=== PATIENT | female | born 1990 | race Caucasian/White ===

== ENCOUNTER 2017-10-26 05:03 | Inpatient (IN) | payer BC, MEDICAID ==
[2017-10-26] MEDS ORDERED: RINGER'S SOLUTION,LACTATED 1,000 ML IV PRN ×2 (05:53)
[2017-10-26] MEDS ORDERED: ceFAZolin SODIUM/DEXTROSE,ISO 2 GM/50 ML BAG IV ONE (07:00)
[2017-10-26] MEDS ORDERED: OXYTOCIN 20 UNITS in RINGER'S SOLUTION,LACTATED 1,000 ML IV ONE (07:00)
[2017-10-26] MEDS ORDERED: RINGER'S SOLUTION,LACTATED 1,000 ML IV ONE (07:45)
[2017-10-26] MEDS ORDERED: oxyCODONE HCL/ACETAMINOPHEN 1 TAB TABLET PO PRN (09:00)
[2017-10-26] MEDS ORDERED: SENNOSIDES 8.6 MG TABLET PO PRN (09:00)
[2017-10-26] MEDS ORDERED: ONDANSETRON HCL/PF 2 MG/ML VIAL IV PRN (09:00)
[2017-10-26] MEDS ORDERED: BISACODYL 10 MG SUPP.RECT RC PRN (09:00)
[2017-10-26] MEDS ORDERED: SIMETHICONE 80 MG TAB.CHEW PO PRN (09:00)
--- NOTE | 2017-10-26 09:04 | OR ---
Operative Report - Dictated Report Narrative: Indication: 26-year-old 2 para 0101 at 39 weeks with prior section presents for repeat low transverse section. status: Planned Pre Operative Diagnosis: 39 week intrauterine . Prior section. Morbid obesity. Post Operative Diagnosis: Same. Procedure: Repeat low transverse section. Surgeon: Norman Mcadams DO Student Services Rep: OR Staff Anesthesia: Spinal, TAP block Estimated Blood Loss: 250 mL Urine Output: 50 mL concentrated urine Fluids Replacement: 1100 mL Drains: Seymour to gravity Surgical Complications: None Specimens: Placenta to freezer Findings: Male born at 0811 on 10/26/2017 with Apgars 9 and 10, weighing 3635 g in cephalic presentation. Normal uterus, tubes, ovaries Technique: The patient was taken to the operating room and placed in dorsal supine position with a left lateral tilt. After adequate spinal anesthesia, seymour catheter inserted, SCDs placed, and 2 g of Ancef given preoperatively, the abdominal cavity was entered using sharp and blunt dissection. Two rolled laps were placed in the pericolic gutters on either side of the uterus. A transverse incision was made in the lower uterine segment and extended laterally and upwardly with digital traction. Clear fluid was noted upon amniotomy. The was delivered easily. was warmed and dried and cord clamping was delayed approximately 60 seconds. The cord was clamped and cut and was handed off to awaiting exterminator termite. The placenta was allowed to deliver spontaneously. The uterus was cleared of clot and debris. Uterine incision was closed with 0 Vicryl using a running stitch. A second imbricating layer was placed. Excellent hemostasis was noted. The rolled laps were removed from the abdominal cavitiy. The peritoneum was closed with a running 3-0 Monocryl. The same suture was used to approximate the rectus and pyramidalis muscles. The fascia was closed with a running 0 Vicryl. The subcutaneous layer was closed with a running 3-0 Monocryl. The same suture was used to approximate the subdermal layer. The skin was closed with a running 4- 0 Monocryl and Dermabond. Sponge, lap, needle, and instrument count were correct x 2. Disposition: To post anesthesia care unit in good condition
--- NOTE | 2017-10-26 09:13 | OR ---
Anesthesia Procedure Note - Anesthesia Procedure Note Date of Service: 10/26/17 Narrative: Vital Signs - Last Taken Temp 36.5 C 10/26/17 08:55 Pulse 107 H 10/26/17 09:10 Resp 18 10/26/17 09:10 BP 128/65 10/26/17 09:10 Pulse Ox 98 10/26/17 09:10 O2 Oxygen Delivery Method Room Air 10/26/17 09:11 ANESTHESIA PROCEDURE NOTE Date of Procedure: 10/25/2017. Time of procedure: 0900. Performed by: Herbie Honeycutt CRNA Chemical Equipment Controller: None. Preprocedure diagnosis: Repeat . Post procedure diagnosis: Same. Procedure: Bilateral ultrasound-guided transversus abdominis plane block for postop analgesia. Indications: The patient is a 26 -year-old female, requesting a bilateral ultrasound-guided tap block for postoperative analgesia related to repeat section. Findings: See below. Details of the procedure: ChloraPrep was used on the patient's abdomen and the procedure was performed under sterile technique. The right abdominal fascial layer between the internal oblique muscle and the transversus abdominis muscle was identified under ultrasound guidance. A 21-gauge 4 inch block needle was inserted under ultrasound guidance to the target fascial plane. 15 mL's of 0.5 % bupivacaine plus epinephrine 1:200,000 was injected after negative aspiration for blood. The needle was removed intact and the procedure was then repeated at the left side. No complications were noted. The images were retained in the hospital medical database . EBL: Minimal. Fluids: N/A. Specimen: N/A. Post procedure condition: The patient tolerated the procedure well. No complications were noted. Thank you for this consultation. Herbie Honeycutt CRNA
[2017-10-26] MEDS: oxyCODONE HCL/ACETAMINOPHEN 1 TAB TABLET PO PRN ×5 (09:31→22:34)
[2017-10-26] MEDS: IBUPROFEN 800 MG TABLET PO PRN ×3 (10:20→23:21)
[2017-10-26 10:36] LABS: Cocaine Ur Negative (NEGATIVE); Urine Barbiturate Negative (NEGATIVE); Urine Benzodiazepines Negative (NEGATIVE); Urine Opiates Negative (NEGATIVE); Urine PCP Negative (NEGATIVE); Urine THC Negative (NEGATIVE)
[2017-10-26] MEDS: DOCUSATE SODIUM 100 MG CAPSULE PO SCH ×2 (10:49→20:58)
[2017-10-26] MEDS: ENOXAPARIN SODIUM 40 MG/0.4 ML SYRG SC SCH (17:08)
[2017-10-27] MEDS: oxyCODONE HCL/ACETAMINOPHEN 1 TAB TABLET PO PRN ×7 (02:28→22:51)
[2017-10-27] MEDS: IBUPROFEN 800 MG TABLET PO PRN ×3 (06:41→19:20)
[2017-10-27] MEDS: DOCUSATE SODIUM 100 MG CAPSULE PO SCH ×3 (09:13→22:52)
[2017-10-27] MEDS: ENOXAPARIN SODIUM 40 MG/0.4 ML SYRG SC SCH (16:41)
[2017-10-28] MEDS: IBUPROFEN 800 MG TABLET PO PRN ×4 (02:02→21:07)
[2017-10-28] MEDS: oxyCODONE HCL/ACETAMINOPHEN 1 TAB TABLET PO PRN ×6 (02:02→21:07)
[2017-10-28] MEDS: DOCUSATE SODIUM 100 MG CAPSULE PO SCH ×2 (08:06→21:07)
--- NOTE | 2017-10-28 11:35 | PN ---
Subjective - Date and Time Seen Date: 10/28/17 Time: 11:34 - Patient seen on 10/27/17 0800 Objective - Vitals Vitals: Last Vital Signs Temp 35.8 C L 10/28/17 08:15 Pulse 87 10/28/17 08:15 Resp 14 10/28/17 00:20 BP 134/74 10/28/17 08:15 Pulse Ox 99 10/28/17 08:15 Patient denies complaints. Tolerating regular diet. Ambulating without difficulty. Pain well controlled. Lochia wnl. Abdomen - soft, appropriately tender Incision - clean, dry, intact Uterus - firm, at umbilicus -1 No calf tenderness Impression: Post op day #1 s/p repeat section. Plan: Continue routine post-operative/ care Cauti Physician Documentation - Urinary Catheter Management Urethral (Patel) Date of Insertion: 10/26/17 Time of Insertion: 08:52 Date of Removal: 10/26/17 Time of Removal: 21:00
--- NOTE | 2017-10-28 11:36 | PN ---
Subjective - Date and Time Seen Date: 10/28/17 Time: 11:36 Objective - Vitals Vitals: Last Vital Signs Temp 35.8 C L 10/28/17 08:15 Pulse 87 10/28/17 08:15 Resp 14 10/28/17 00:20 BP 134/74 10/28/17 08:15 Pulse Ox 99 10/28/17 08:15 Patient denies complaints. Ambulating well. Tolerating regular diet. Pain well controlled. Lochia wnl. Abdomen - soft, appropriately tender Incision - clean, dry, intact Uterus - firm, at umbilicus -2 No calf tenderness Impression: Post op day #2 s/p repeat section. Plan: Continue routine post-operative/ care Cauti Physician Documentation - Urinary Catheter Management Urethral (Patel) Date of Insertion: 10/26/17 Time of Insertion: 08:52 Date of Removal: 10/26/17 Time of Removal: 21:00
[2017-10-28] MEDS: ENOXAPARIN SODIUM 40 MG/0.4 ML SYRG SC SCH (17:13)
[2017-10-29] MEDS: oxyCODONE HCL/ACETAMINOPHEN 1 TAB TABLET PO PRN ×3 (00:07→08:20)
[2017-10-29] MEDS: IBUPROFEN 800 MG TABLET PO PRN ×2 (04:56→11:57)
--- NOTE | 2017-10-29 07:27 | PN ---
Subjective - Date and Time Seen Date: 10/29/17 Time: 07:26 Objective - Vitals Vitals: Last Vital Signs Temp 36.3 C L 10/28/17 18:53 Pulse 86 10/28/17 18:53 Resp 14 10/28/17 18:53 BP 127/73 10/28/17 18:53 Pulse Ox 94 10/28/17 18:53 Patient denies complaints. Ambulating without difficulty. Tolerating regular diet. Pain well controlled. Lochia wnl. Abdomen - soft, appropriately tender Incision - clean, dry, intact Uterus - firm, at umbilicus -3 No calf tenderness Impression: Post op day #3 s/p repeat section. Plan: Routine discharge instructions Cauti Physician Documentation - Urinary Catheter Management Urethral (Patel) Date of Insertion: 10/26/17 Time of Insertion: 08:52 Date of Removal: 10/26/17 Time of Removal: 21:00
[2017-10-29 08:06] VITALS: BP 139/80
[2017-10-29] MEDS: DOCUSATE SODIUM 100 MG CAPSULE PO SCH (08:20)
== END 2017-10-29 14:50 | disposition home or self-care (01) | DRG 766 ==
LOC: OB 05:03
PROVIDERS: ADMIT Obstetrics & Gynecology; ATTEND Obstetrics & Gynecology
PROC: 4A1HXCZ Monitoring of Products of Conception, Cardiac Rate, External Approach (ICD-10-PCS; 2017-10-26)
PROC: 10D00Z1 Extraction of Products of Conception, Low, Open Approach (ICD-10-PCS; principal; 2017-10-26 08:00)
DX: O34.211 Maternal care for low transverse scar from previous cesarean delivery (principal); Z87.898 Personal history of other specified conditions; Z3A.39 39 weeks gestation of pregnancy; Z37.0 Single live birth